=== PATIENT | male | born 1990 | race Caucasian/White ===

== ENCOUNTER 2020-01-27 16:06 | Emergency (ER) | payer MEDICAID ==
[~2020-01-27] VITALS: Ht 180.3 cm; Wt 99.0 kg
[2020-01-27 16:09] VITALS: BP 121/88
--- NOTE | 2020-01-27 16:24 | NUR ---
Pt here for bed bug rash, reports staying at [facility]. Pt has no sob,cp or is not in any distress. Pt has bite karen throughout torso.
[2020-01-27] MEDS ORDERED: hydrOXyzine 50MG TABLET ONE (16:28)
[2020-01-27] MEDS ORDERED: PERMETHRIN CRM 5%, 60GM TP ONE (16:30)
[2020-01-27] MEDS ORDERED: PLEASE ENTER ALLERGIES MC SCH (16:30)
--- NOTE | 2020-01-27 16:40 | NUR ---
Patient/Caregiver given discharge instructions and they have confirmed that they understand the instructions. Patient ambulatory with steady gait.
--- NOTE | 2020-01-27 16:40 | NUR ---
pt provided with meal and hydration.
== END 2020-01-27 16:42 | disposition home or self-care (01) ==
LOC: ED 16:07
DX: T14.8XXA Other injury of unspecified body region, initial encounter (principal); W57.XXXA Bitten or stung by nonvenomous insect and other nonvenomous arthropods, initial encounter; Y93.89 Activity, other specified; Y92.89 Other specified places as the place of occurrence of the external cause; Y99.8 Other external cause status
CPT/HCPCS: 99283; Q0177

== ENCOUNTER 2020-02-02 20:11 | Emergency (ER) | payer MEDICAID ==
[~2020-02-02] VITALS: Ht 180.3 cm; Wt 102.3 kg
[2020-02-02] MEDS ORDERED: SODIUM CHLORIDE 0.9% 1,000ML IVBOLUS ONE (20:30)
[2020-02-02 21:02] LABS: BASOPHILS % (AUTO) 0 % (0-1); EOSINOPHILS # (AUTO) 0.01 x10^3/uL (0-0.4); EOSINOPHILS % (AUTO) 0 % (1-7); LYMPHOCYTES # (AUTO) 0.77 x10^3/uL (1-3.4); LYMPHOCYTES % (AUTO) 6 % (22-44); MD NO; MEAN CORPUSCULAR HEMOGLOBIN 30.5 pg (27.5-34.5); MEAN CORPUSCULAR VOLUME 89.7 fL (81-97); MEAN PLATELET VOLUME 8.4 fL (7.4-10.4); MONOCYTES # (AUTO) 0.55 x10^3/uL (0.2-0.8); MONOCYTES % (AUTO) 5 % (2-9); NEUTROPHILS # (AUTO) 10.66 x10^3/uL (1.8-6.8); NEUTROPHILS % (AUTO) 89 % (42-75); PLATELET COUNT 167 x10^3/uL (130-400); RED BLOOD COUNT 5.63 x10^6/uL (4.38-5.82); RED CELL DISTRIBUTION WIDTH 14.2 % (9.4-14.8)
[2020-02-02 21:10] LABS: ALANINE AMINOTRANSFERASE 28 U/L (12-78); ALBUMIN 3.6 g/dL (3.4-5.0); ANION GAP 6 mmol/L (5-15); CALCIUM 8.3 mg/dL (8.5-10.1); CHLORIDE 104 mmol/L (98-107)
[2020-02-02 21:13] LABS: ALKALINE PHOSPHATASE 82 U/L (45-117); BILIRUBIN,TOTAL 0.7 mg/dL (0.2-1.0); CREATININE 1.35 mg/dL (0.7-1.3); TOTAL PROTEIN 7.1 g/dL (6.4-8.2)
--- NOTE | 2020-02-02 22:31 | NUR ---
PT SLEEPING, RA O2 SAT 88%. PT PLACED ON NC 2L O2 -->O2 SAT 95%.
[2020-02-02] MEDS ORDERED: OMNIPAQUE 350 MG/ML, 100ML BOTTLE ONE (23:43)
[2020-02-03 01:14] VITALS: BP 126/60
--- NOTE | 2020-02-03 01:16 | NUR ---
PT AMBULATED IN HALLWAY WITH GUARDED GAIT, MOVING SLOWLY BUT STABLE. RA O2 SAT 96% AFTER ROAD TEST.
== END 2020-02-03 02:28 | disposition home or self-care (01) ==
LOC: ED 20:48
DX: R50.9 Fever, unspecified (principal); Z20.828 Contact with and (suspected) exposure to other viral communicable diseases; R05 Cough; M79.10 Myalgia, unspecified site; R00.0 Tachycardia, unspecified; R06.02 Shortness of breath
CPT/HCPCS: 36415; 71045; 71275; 80053; 80307; 83605; 84145; 85025; 85379; 87040; 87635; 99285; J7030; Q9967; 96360

== ENCOUNTER 2020-04-08 14:41 | Emergency (ER) | payer MEDICAID ==
[~2020-04-08] VITALS: Ht 180.3 cm; Wt 99.0 kg
[2020-04-08 14:44] VITALS: BP 146/82
[2020-04-08 15:30] LABS: BASOPHILS % (AUTO) 0 % (0-1); EOSINOPHILS % (AUTO) 2 % (1-7); LYMPHOCYTES % (AUTO) 22 % (22-44); MEAN CORPUSCULAR HGB CONC 33.8 g/dL (33.2-36.2); MEAN PLATELET VOLUME 7.7 fL (7.4-10.4); MONOCYTES % (AUTO) 6 % (2-9); NEUTROPHILS % (AUTO) 69 % (42-75); PLATELET COUNT 276 x10^3/uL (130-400); RED BLOOD COUNT 5.48 x10^6/uL (4.38-5.82); RED CELL DISTRIBUTION WIDTH 14.3 % (9.4-14.8)
[2020-04-08 15:31] LABS: MD NO
[2020-04-08 15:41] LABS: ALBUMIN 3.5 g/dL (3.4-5.0); ANION GAP 2 mmol/L (5-15); CALCIUM 8.3 mg/dL (8.5-10.1); CHLORIDE 111 mmol/L (98-107)
[2020-04-08 15:44] LABS: ALANINE AMINOTRANSFERASE 17 U/L (12-78); ALKALINE PHOSPHATASE 77 U/L (45-117); BILIRUBIN,TOTAL 0.3 mg/dL (0.2-1.0); CREATININE 0.89 mg/dL (0.7-1.3); TOTAL PROTEIN 6.7 g/dL (6.4-8.2)
--- NOTE | 2020-04-08 16:06 | NUR ---
PT HAD TO LEAVE D/T TRANSPORTATION ISSUES. SAMPLE CUP SENT WITH PT AND INSTRUCTIONS. PT VERBALIZES UNDERSTANDING.
[2020-04-10 19:45] LABS: CRYPTOSPORIDIUM ANTIGEN Negative (Negative)
== END 2020-04-08 16:08 | disposition home or self-care (01) ==
LOC: ED 15:44
DX: R19.7 Diarrhea, unspecified (principal); J45.909 Unspecified asthma, uncomplicated; F17.200 Nicotine dependence, unspecified, uncomplicated
CPT/HCPCS: 36415; 80053; 85025; 87046; 87252; 87328; 87329; 99283

== ENCOUNTER 2020-05-30 17:42 | Emergency (ER) | payer MEDICAID ==
[~2020-05-30] VITALS: Ht 180.3 cm; Wt 104.5 kg
--- NOTE | 2020-05-30 17:55 | NUR ---
DIRECT SUPPORT SPECIALIST: PT AGITATED IN TRIAGE WHEN ASKED TO REMOVE SHIRT FOR EKG.
--- NOTE | 2020-05-30 17:56 | NUR ---
INJECTION MACHINE OPERATOR: PT AMBULATORY W/ A STEADY GAIT TO ROOM AT THIS TIME.
[2020-05-30] MEDS ORDERED: ALBUTEROL/IPRATROPIUM 2.5MG/0.5MG, 3 ML ONE (18:11)
--- NOTE | 2020-05-30 18:22 | NUR ---
PT ARGUING ABOUT HOW MANY XRAYS SHOULD HAVE BEEN TAKEN. STATING "IT'S ALWAYS MORE THAN ONE". WOULD NOT STOP TALKING WHEN THIS RN ATTEMPTED TO EXPLAIN THE ORDER PLACED BY PROVIDER. PT COMPLIANT WITH MEDS.
[2020-05-30] MEDS ORDERED: ALBUTEROL/IPRATROPIUM 2.5MG/0.5MG, 3 ML NPPB ONE (18:30)
[2020-05-30 19:10] VITALS: BP 123/68
== END 2020-05-30 19:12 | disposition home or self-care (01) ==
LOC: ED 18:07
DX: J45.41 Moderate persistent asthma with (acute) exacerbation (principal); I45.10 Unspecified right bundle-branch block; I44.5 Left posterior fascicular block; I25.2 Old myocardial infarction; R07.89 Other chest pain; F17.290 Nicotine dependence, other tobacco product, uncomplicated
CPT/HCPCS: 71045; 93005; 94640; 99283; J7512

== ENCOUNTER 2020-06-20 15:17 | Emergency (ER) | payer MEDICAID ==
[~2020-06-20] VITALS: Ht 180.3 cm; Wt 103.8 kg
--- NOTE | 2020-06-20 15:40 | NUR ---
FOUNDATION DRILL OPERATOR: PT TO ROOM FROM LOBBY
[2020-06-20 16:16] VITALS: BP 136/80
--- NOTE | 2020-06-20 16:16 | NUR ---
Patient given discharge instructions and they have confirmed that they understand the instructions. Patient ambulatory with steady gait.
== END 2020-06-20 16:18 | disposition home or self-care (01) ==
LOC: ED 15:30
DX: R19.7 Diarrhea, unspecified (principal); J45.909 Unspecified asthma, uncomplicated; F17.200 Nicotine dependence, unspecified, uncomplicated
CPT/HCPCS: 99281

== ENCOUNTER 2020-06-30 22:42 | Emergency (ER) | payer MEDICAID ==
[~2020-06-30] VITALS: Ht 180.3 cm; Wt 103.2 kg
[2020-06-30 22:46] VITALS: BP 126/77
[2020-06-30] MEDS ORDERED: METHOCARBAMOL 750 MG TABLET PO ONE (23:30)
[2020-06-30] MEDS ORDERED: ACETAMINOPHEN 500 MG TABLET PO ONE (23:30)
[2020-06-30] MEDS ORDERED: ACETAMINOPHEN 500 MG TABLET ONE (23:36)
[2020-06-30] MEDS ORDERED: METHOCARBAMOL 750 MG TABLET ONE ×2 (23:36→23:51)
== END 2020-07-01 00:47 | disposition home or self-care (01) ==
LOC: ED 23:12
DX: S09.90XA Unspecified injury of head, initial encounter (principal); Z72.9 Problem related to lifestyle, unspecified; F17.210 Nicotine dependence, cigarettes, uncomplicated; J45.909 Unspecified asthma, uncomplicated; W22.8XXA Striking against or struck by other objects, initial encounter; Y93.89 Activity, other specified; Y92.410 Unspecified street and highway as the place of occurrence of the external cause; Y99.0 Civilian activity done for income or pay
CPT/HCPCS: 70450; 99284

== ENCOUNTER 2020-07-18 20:48 | Emergency (ER) | payer MEDICAID ==
--- NOTE | 2020-07-18 21:19 | NUR ---
CC OF MIGRAINE HEADACHES FOR ONE WEEK.PT CONCERED IF IT COULD BE FROM HEAD INJURY PREVIOUSLY. PT HAS MULTIPLE COMPLAINTS INCLUDING NAUSEA/VOMITING AND BODY ACHES AND CHILLS. PT WILL HAVE REASON FOR EACH COMPLAINT SUCH " THE LIGHTING IN MY APARTMENT IS DIM AND COULD BE CAUSING MY PERDOMO, I DRINK ONE TALL BOY OF MONSTER [employer]ER[employer] DRINK A DAY WHICH COULD BE CAUSING IT TOO, I HAVENT BEEN DRINKING MUCH WATER LATELY." PT RESTING IN [facility].
[2020-07-18] MEDS ORDERED: DIPHENHYDRAMINE 25 MG CAPSULE PO ONE (22:00)
[2020-07-18] MEDS ORDERED: PROMETHAZINE 25 MG/ML, 1ML IM ONE (22:00)
[2020-07-18] MEDS ORDERED: IBUPROFEN 600 MG TABLET PO ONE (22:00)
[2020-07-18 22:20] LABS: BASOPHILS % (AUTO) 0 % (0-1); EOSINOPHILS % (AUTO) 2 % (1-7); LYMPHOCYTES % (AUTO) 29 % (22-44); MEAN CORPUSCULAR HEMOGLOBIN 31.2 pg (27.5-34.5); MEAN CORPUSCULAR HGB CONC 35.6 g/dL (33.2-36.2); MEAN PLATELET VOLUME 7.9 fL (7.4-10.4); MONOCYTES % (AUTO) 9 % (2-9); NEUTROPHILS % (AUTO) 60 % (42-75); PLATELET COUNT 242 x10^3/uL (130-400); RED BLOOD COUNT 5.43 x10^6/uL (4.38-5.82); RED CELL DISTRIBUTION WIDTH 13.5 % (9.4-14.8)
[2020-07-18] MEDS ORDERED: DIPHENHYDRAMINE 25 MG CAPSULE ONE (22:26)
[2020-07-18] MEDS ORDERED: IBUPROFEN 600 MG TABLET ONE (22:26)
[2020-07-18] MEDS ORDERED: PROMETHAZINE 25 MG/ML, 1ML ONE (22:26)
[2020-07-18 22:27] LABS: ALANINE AMINOTRANSFERASE 23 U/L (12-78); ALBUMIN 3.5 g/dL (3.4-5.0); ANION GAP 6 mmol/L (5-15); CALCIUM 8.3 mg/dL (8.5-10.1); CHLORIDE 112 mmol/L (98-107); CREATININE 0.88 mg/dL (0.7-1.3)
[2020-07-18 22:30] LABS: ALKALINE PHOSPHATASE 78 U/L (45-117); BILIRUBIN,TOTAL 0.3 mg/dL (0.2-1.0); TOTAL PROTEIN 6.6 g/dL (6.4-8.2)
[2020-07-18 22:34] LABS: MD NO
[2020-07-18 23:38] VITALS: BP 124/72
== END 2020-07-18 23:40 | disposition home or self-care (01) ==
LOC: ED 22:36
DX: R51.9 Headache, unspecified (principal); R11.2 Nausea with vomiting, unspecified; R19.7 Diarrhea, unspecified; J45.909 Unspecified asthma, uncomplicated
CPT/HCPCS: 36415; 80053; 85025; 96372; 99283; J2550; Q0163

== ENCOUNTER 2020-07-31 19:54 | Emergency (ER) | payer MEDICAID ==
[~2020-07-31] VITALS: Ht 180.3 cm; Wt 103.8 kg
[2020-07-31 22:00] LABS: MEAN CORPUSCULAR HEMOGLOBIN 30.8 pg (27.5-34.5); MEAN CORPUSCULAR HGB CONC 34.9 g/dL (33.2-36.2); PLATELET COUNT 232 x10^3/uL (130-400); RED BLOOD COUNT 6.58 x10^6/uL (4.38-5.82); RED CELL DISTRIBUTION WIDTH 13.6 % (9.4-14.8)
[2020-07-31 22:09] LABS: ALBUMIN 3.5 g/dL (3.4-5.0); ANION GAP 8 mmol/L (5-15); CALCIUM 8.3 mg/dL (8.5-10.1); CHLORIDE 111 mmol/L (98-107)
[2020-07-31 22:12] LABS: ALANINE AMINOTRANSFERASE 30 U/L (12-78); ALKALINE PHOSPHATASE 86 U/L (45-117); BILIRUBIN,TOTAL 0.3 mg/dL (0.2-1.0); CREATININE 0.97 mg/dL (0.7-1.3); TOTAL PROTEIN 6.7 g/dL (6.4-8.2)
[2020-07-31 22:48] LABS: MD YES
[2020-07-31 22:52] LABS: BAND#(MANUAL) 0.15 x10^3/uL; BANDS%(MANUAL) 1 % (0-7); BASOS#(MANUAL) 0.15 x10^3/uL (0-0.1); BASOS% (MANUAL) 1 % (0-1); EOS#(MANUAL) 0.15 x10^3/uL (0.0-0.4); EOS% (MANUAL) 1 % (1-7); LYMPH#(MANUAL) 2.47 x10^3/uL (1-3.4); LYMPHS% (MANUAL) 17 % (22-44); MONOS#(MANUAL) 1.16 x10^3/uL (0.3-2.7); MONOS% (MANUAL) 8 % (2-9); REACTIVE LYMPHS # (MANUAL) 0.58 x10^3/uL (0-0); REACTIVE LYMPHS % (MANUAL) 4 % (0-0); SEG#(MANUAL) 9.86 x10^3/uL (1.8-6.8); SEGS% (MANUAL) 68 % (42-75)
[2020-07-31 22:53] LABS: <PLATELET ESTIMATE> ADEQUATE; <PLT MORPHOLOGY> NORMAL PLT MORPH; <RBC MORPHOLOGY> NORMAL
[2020-07-31 23:35] VITALS: BP 146/80
== END 2020-07-31 23:37 | disposition home or self-care (01) ==
LOC: ED 20:24
DX: K52.29 Other allergic and dietetic gastroenteritis and colitis (principal); R19.7 Diarrhea, unspecified; R10.10 Upper abdominal pain, unspecified; J45.909 Unspecified asthma, uncomplicated; F17.200 Nicotine dependence, unspecified, uncomplicated
CPT/HCPCS: 36415; 80053; 83690; 85025; 99281; 99283

== ENCOUNTER 2020-08-21 00:48 | Emergency (ER) | payer MEDICAID ==
[~2020-08-21] VITALS: Ht 180.3 cm; Wt 102.0 kg
--- NOTE | 2020-08-21 01:42 | NUR ---
Pt to ER with c/o body aches, cough, sob, fever and chills x 2 days. Pt A&O x 4, non-labored breathing, pink and warm. Pt attached to monitor, stable VS. Warm blanket given. Will monitor.
[2020-08-21] MEDS ORDERED: ALBUTEROL/IPRATROPIUM 2.5MG/0.5MG, 3 ML NPPB ONE (02:00)
[2020-08-21] MEDS ORDERED: ONDANSETRON 2MG/ML, 2ML IVPush ONE (02:00)
[2020-08-21] MEDS ORDERED: SODIUM CHLORIDE 0.9% 1,000ML IVBOLUS ONE (02:00)
[2020-08-21] MEDS ORDERED: KETOROLAC 30 MG/1 ML IM ONE (02:00)
[2020-08-21] MEDS ORDERED: SODIUM CHLORIDE FLUSH 10ML SYR IVF ONE (02:00)
[2020-08-21] MEDS ORDERED: DEXAMETHASONE 4 MG TABLET PO ONE (02:00)
[2020-08-21 02:15] LABS: BASOPHILS % (AUTO) 0 % (0-1); EOSINOPHILS % (AUTO) 1 % (1-7); LYMPHOCYTES % (AUTO) 11 % (22-44); MEAN CORPUSCULAR HEMOGLOBIN 30.8 pg (27.5-34.5); MEAN CORPUSCULAR HGB CONC 34.9 g/dL (33.2-36.2); MEAN PLATELET VOLUME 7.9 fL (7.4-10.4); MONOCYTES % (AUTO) 9 % (2-9); NEUTROPHILS % (AUTO) 79 % (42-75); PLATELET COUNT 229 x10^3/uL (130-400); RED BLOOD COUNT 5.85 x10^6/uL (4.38-5.82); RED CELL DISTRIBUTION WIDTH 13.8 % (9.4-14.8)
[2020-08-21 02:16] LABS: ALANINE AMINOTRANSFERASE 28 U/L (12-78); ALBUMIN 3.4 g/dL (3.4-5.0); ANION GAP 6 mmol/L (5-15); CALCIUM 8.4 mg/dL (8.5-10.1); CHLORIDE 105 mmol/L (98-107); CREATININE 1.06 mg/dL (0.7-1.3)
[2020-08-21 02:20] LABS: ALKALINE PHOSPHATASE 79 U/L (45-117); BILIRUBIN,TOTAL 0.4 mg/dL (0.2-1.0); TOTAL PROTEIN 6.8 g/dL (6.4-8.2); TROPONIN I < 0.015 ng/mL (0.000-0.045)
[2020-08-21 02:21] LABS: MD NO
[2020-08-21] MEDS ORDERED: DEXAMETHASONE 4 MG TABLET ONE (02:27)
[2020-08-21] MEDS ORDERED: KETOROLAC 30 MG/1 ML ONE (02:27)
[2020-08-21] MEDS ORDERED: ONDANSETRON 2MG/ML, 2ML ONE (02:27)
[2020-08-21] MEDS ORDERED: ALBUTEROL/IPRATROPIUM 2.5MG/0.5MG, 3 ML ONE (02:28)
[2020-08-21 03:55] VITALS: BP 135/64
--- NOTE | 2020-08-21 03:58 | NUR ---
Patient given discharge instructions and they have confirmed that they understand the instructions. Patient ambulatory with steady gait. Rx reviewed with patient. Pt home with a ride.
== END 2020-08-21 04:00 | disposition home or self-care (01) ==
LOC: ED 03:19
DX: B34.9 Viral infection, unspecified (principal); Z20.822 Contact with and (suspected) exposure to COVID-19; J45.909 Unspecified asthma, uncomplicated
CPT/HCPCS: 36415; 71045; 80053; 84484; 85025; 93005; 94640; 96361; 96372; 96374; 99285; J1885; J2405; J7030; U0003

== ENCOUNTER 2020-08-29 23:39 | Emergency (ER) | payer MEDICAID ==
[~2020-08-29] VITALS: Ht 180.3 cm; Wt 105.6 kg
--- NOTE | 2020-08-30 00:27 | NUR ---
IV started, bloods drawn and sent. Requested urine from pt, unable at this time.
[2020-08-30] MEDS ORDERED: SODIUM CHLORIDE FLUSH 10ML SYR IVF ONE (00:30)
[2020-08-30] MEDS ORDERED: OMNIPAQUE 350 MG/ML, 100ML BOTTLE ONE (00:30)
[2020-08-30 00:34] LABS: BASOPHILS % (AUTO) 1 % (0-1); EOSINOPHILS % (AUTO) 2 % (1-7); LYMPHOCYTES % (AUTO) 20 % (22-44); MEAN CORPUSCULAR HEMOGLOBIN 31.4 pg (27.5-34.5); MEAN CORPUSCULAR HGB CONC 35.4 g/dL (33.2-36.2); MEAN PLATELET VOLUME 7.5 fL (7.4-10.4); MONOCYTES % (AUTO) 9 % (2-9); NEUTROPHILS % (AUTO) 68 % (42-75); PLATELET COUNT 266 x10^3/uL (130-400); RED BLOOD COUNT 5.67 x10^6/uL (4.38-5.82); RED CELL DISTRIBUTION WIDTH 13.8 % (9.4-14.8)
--- NOTE | 2020-08-30 00:40 | NUR ---
Wtg for CT, pt watching tv and on phone. Does not appear to be in any distress. Call jones in reach, pt is fully ambulatory.
[2020-08-30 00:46] LABS: ALANINE AMINOTRANSFERASE 28 U/L (12-78); ALBUMIN 3.1 g/dL (3.4-5.0); ANION GAP 5 mmol/L (5-15); CALCIUM 8.2 mg/dL (8.5-10.1); CHLORIDE 108 mmol/L (98-107); CREATININE 1.06 mg/dL (0.7-1.3)
[2020-08-30 00:48] LABS: ALKALINE PHOSPHATASE 77 U/L (45-117); BILIRUBIN,TOTAL 0.1 mg/dL (0.2-1.0); TOTAL PROTEIN 6.2 g/dL (6.4-8.2)
[2020-08-30 01:06] LABS: MD SCAN
--- NOTE | 2020-08-30 01:21 | NUR ---
BREAK RN: PT TAKEN TO AND BACK FROM CT SCAN.
--- NOTE | 2020-08-30 02:31 | NUR ---
Still waiting for stat rad CT, requested inquiry to Tonia, Crm Marketing Analyst.
[2020-08-30 03:19] VITALS: BP 135/71
--- NOTE | 2020-08-30 03:19 | NUR ---
CT results back, pt to be discharged. IV dc cath intact. VSS.
== END 2020-08-30 03:30 | disposition home or self-care (01) ==
LOC: ED 08-30 00:09
DX: K52.9 Noninfective gastroenteritis and colitis, unspecified (principal); R10.32 Left lower quadrant pain; J45.909 Unspecified asthma, uncomplicated; F17.210 Nicotine dependence, cigarettes, uncomplicated
CPT/HCPCS: 36415; 74177; 80053; 85025; 99285; 99406; Q9967

== ENCOUNTER 2020-09-25 12:58 | Emergency (ER) | payer MEDICAID ==
[~2020-09-25] VITALS: Ht 180.3 cm; Wt 105.1 kg
--- NOTE | 2020-09-25 13:48 | NUR ---
PANTRY ATTENDANT: PT AMBULATORY TO ROOM FROM LOBBY
--- NOTE | 2020-09-25 14:25 | NUR ---
PT REPORTS HE HAS HAD SOME N/V X4 DAYS. PT ALSO C/O CENTER ABD PAIN. VS STABLE. NO ACUTE DISTRESS NOTED. CALL LIGHT IN PLACE. WILL CONTINUE TO MONITOR.
[2020-09-25 14:30] LABS: BASOPHILS % (AUTO) 0 % (0-1); EOSINOPHILS % (AUTO) 1 % (1-7); LYMPHOCYTES % (AUTO) 24 % (22-44); MEAN CORPUSCULAR HEMOGLOBIN 30.9 pg (27.5-34.5); MEAN CORPUSCULAR HGB CONC 34.6 g/dL (33.2-36.2); MEAN PLATELET VOLUME 7.8 fL (7.4-10.4); MONOCYTES % (AUTO) 9 % (2-9); NEUTROPHILS % (AUTO) 65 % (42-75); PLATELET COUNT 246 x10^3/uL (130-400); RED BLOOD COUNT 5.15 x10^6/uL (4.38-5.82)
[2020-09-25 14:35] LABS: MD NO
[2020-09-25 14:41] LABS: ALBUMIN 3.7 g/dL (3.4-5.0); ANION GAP 6 mmol/L (5-15); CALCIUM 8.8 mg/dL (8.5-10.1); CHLORIDE 104 mmol/L (98-107)
--- NOTE | 2020-09-25 14:41 | NUR ---
PT WATCHING TV IN ROOM. VS STABLE. NO ACUTE DISTRESS NOTED. CALL LIGHT IN PLACE. WILL CONTINUE TO MONITOR.
[2020-09-25 14:45] LABS: ALANINE AMINOTRANSFERASE 23 U/L (12-78); ALKALINE PHOSPHATASE 71 U/L (45-117); BILIRUBIN,TOTAL 0.2 mg/dL (0.2-1.0); CREATININE 0.82 mg/dL (0.7-1.3); TOTAL PROTEIN 6.7 g/dL (6.4-8.2)
--- NOTE | 2020-09-25 15:15 | NUR ---
PT AMBULATED TO BATHROOM. VS STABLE. NO ACUTE DISTRESS NOTED. CALL LIGHT IN PLACE. WILL CONTINUE TO MONITOR.
--- NOTE | 2020-09-25 15:34 | NUR ---
DR FARIAS IN ROOM
[2020-09-25] MEDS ORDERED: ONDANSETRON 2MG/ML, 2ML ONE (15:47)
[2020-09-25] MEDS ORDERED: SODIUM CHLORIDE 0.9% 1,000ML IVBOLUS ONE (16:00)
[2020-09-25] MEDS ORDERED: SODIUM CHLORIDE FLUSH 10ML SYR IVF ONE (16:00)
[2020-09-25] MEDS ORDERED: ONDANSETRON 2MG/ML, 2ML IVPush ONE (16:00)
--- NOTE | 2020-09-25 16:03 | NUR ---
PT WATCHING TV. VS STABLE. CALL LIGHT IN PLACE. WILL CONTINUE TO MONITOR.
--- NOTE | 2020-09-25 16:29 | NUR ---
PT RESTING IN ROOM. VS STABLE. NO ACUTE DISTRESS NOTED. CALL LIGHT IN PLACE. WILL CONTINUE TO MONITOR.
[2020-09-25 16:45] VITALS: BP 125/59
== END 2020-09-25 16:48 | disposition home or self-care (01) ==
LOC: ED 16:42
DX: K52.9 Noninfective gastroenteritis and colitis, unspecified (principal); R11.2 Nausea with vomiting, unspecified; J45.909 Unspecified asthma, uncomplicated; F17.200 Nicotine dependence, unspecified, uncomplicated
CPT/HCPCS: 36415; 80053; 83690; 85025; 96361; 96374; 99285; J2405; J7030

== ENCOUNTER 2020-10-16 10:48 | Emergency (ER) | payer MEDICAID, OTHER ==
[~2020-10-16] VITALS: Ht 180.3 cm; Wt 101.4 kg
--- NOTE | 2020-10-16 11:02 | NUR ---
PT AMBULATORY TO ROOM FROM TRIAGE WITH UPRIGHT, STEADY GAIT. PT CHANGED INTO GOWN, MONITORS IN PLACE. CALL LIGHT WITHIN REACH
--- NOTE | 2020-10-16 11:13 | NUR ---
PA AT BS
[2020-10-16] MEDS ORDERED: IBUPROFEN 600 MG TABLET PO ONE (11:30)
--- NOTE | 2020-10-16 11:35 | NUR ---
PT TO RADIOLOGY
[2020-10-16] MEDS ORDERED: IBUPROFEN 600 MG TABLET ONE (11:36)
--- NOTE | 2020-10-16 11:47 | NUR ---
PT BACK FROM RADIOLOGY, MONITORS IN PLACE. CALL LIGHT WITHIN REACH
--- NOTE | 2020-10-16 12:08 | NUR ---
PA AT BS
--- NOTE | 2020-10-16 12:24 | NUR ---
PT TO CT
[2020-10-16 12:50] VITALS: BP 124/72
--- NOTE | 2020-10-16 12:50 | NUR ---
BREAK RN: PT STATES PERDOMO IS TOLLERABLE AFTER PAIN MEDS.
--- NOTE | 2020-10-16 12:51 | NUR ---
BREAK RN: ALL RESULTS ARE BACK AT THIS TIME. CHART UP FOR RECHECK.
--- NOTE | 2020-10-16 13:22 | NUR ---
Patient given discharge instructions and they have confirmed that they understand the instructions. Patient ambulatory with steady gait.
== END 2020-10-16 13:24 | disposition home or self-care (01) ==
LOC: ED 11:20
DX: S80.02XA Contusion of left knee, initial encounter (principal); S00.83XA Contusion of other part of head, initial encounter; R41.3 Other amnesia; J45.909 Unspecified asthma, uncomplicated; E66.9 Obesity, unspecified; W12.XXXA Fall on and from scaffolding, initial encounter; Y93.89 Activity, other specified; Y92.69 Other specified industrial and construction area as the place of occurrence of the external cause; Y99.8 Other external cause status
CPT/HCPCS: 70450; 99284

== ENCOUNTER 2021-01-16 07:27 | Emergency (ER) | payer MEDICAID, OTHER ==
[~2021-01-16] VITALS: Ht 180.3 cm; Wt 98.0 kg
--- NOTE | 2021-01-16 07:58 | NUR ---
CARGO TANK MECHANIC: PT TO ROOM FROM LOBBY VIA W/C
[2021-01-16] MEDS ORDERED: ACETAMINOPHEN 500 MG TABLET PO ONE (08:00)
[2021-01-16] MEDS ORDERED: KETOROLAC 30 MG/1 ML IM ONE (08:00)
--- NOTE | 2021-01-16 08:02 | NUR ---
FIRST CONTACT: body aches PERDOMO and cough x3 days. pt states that he has not had a COVID vaccine. PT TO ROOM WITH STEADY GAIT. ATTACHED TO MONITORS. VSS. LAWSON.
[2021-01-16] MEDS ORDERED: KETOROLAC 30 MG/1 ML ONE (08:04)
[2021-01-16] MEDS ORDERED: ACETAMINOPHEN 500 MG TABLET ONE (08:04)
--- NOTE | 2021-01-16 08:15 | NUR ---
PT AGIATED WHEN THIS RN IN ROOM ATTEMPTING TO ASK MEDCIAL HISTORY AND INTRUPPTING THIS RN STATING "NO ONE FUCKING CARE OR THIHKS SOMETHING IS WRONG WITH ME. I WANT A HEAD SCAN!" PT THEN PROCEDED TO THROW GLASSES ACROSS ROOM. THIS RN STATED SHE WILL CALL SECUIRTY IF CONTINUES TO ACT AGRESSIVELY AND AGIATED. PT STATED "I'M SORRY, I JUST DON'T FEEL GOOD, IM NORMALLY NOT RUDE LIKE THIS". PT MEDICATED PER EMAR AND PROVIDED WITH WARM BLANKET. VSS
[2021-01-16 09:17] VITALS: BP 126/71
--- NOTE | 2021-01-16 09:17 | NUR ---
DR. FLORENCE TO BEDSIDE FOR EVALUATION. VSS. LAWSON.
--- NOTE | 2021-01-16 09:22 | NUR ---
WHILE DR. FLORENCE DISCUSSING POC PT BEGAN DEMANDING HEAD CT YELLING "I'M NOT LEAVING UNTIL YOU CAN MY HEAD, YOHANNES HAD A MIGRANE FOR 5 DAYS NOW AND I WANT TO KNOW WHY MY BODY ACHES!" DR. FLORENCE ATTEMPTING TO EDUCATE PT ON POC AND HOW HE DIDN'T MEET CRITERIA FOR HEAD CT. PT BECAME MORE AGIATED. STATING "YOU PEOPLE AREN'T DOING YOUR JOBS" PT TO BE D/C WITH SECURITY ONCE PAPERWORK IS COMPLETE. VSS. Addendum: 01/16/21 at [address] FLORENCE DISCUSSING POC PT BEGAN DEMANDING HEAD CT YELLING "I'M NOT LEAVING UNTIL YOU SCAN MY HEAD, YOHANNES HAD A MIGRANE FOR 5 DAYS NOW AND I WANT TO KNOW WHY MY BODY ACHES!" DR. FLORENCE ATTEMPTING TO EDUCATE PT ON POC AND HOW HE DIDN'T MEET CRITERIA FOR HEAD CT. PT BECAME MORE AGIATED. STATING "YOU PEOPLE AREN'T DOING YOUR JOBS" PT TO BE D/C WITH SECURITY ONCE PAPERWORK IS COMPLETE. VSS.
--- NOTE | 2021-01-16 11:24 | NUR ---
LATE ENTRY: PT REFUSING TO LEAVE AFTER D/C STATING "IM NOT LEAVING UNTIL I GET A HEAD CT. I AM GOING TO [facility]" SECURITY CALLED AND PT ESCORTED OUT WITH D/C PAPER WORK.
== END 2021-01-16 10:15 | disposition home or self-care (01) ==
LOC: ED 10:09
DX: J06.9 Acute upper respiratory infection, unspecified (principal); Z20.822 Contact with and (suspected) exposure to COVID-19; M79.10 Myalgia, unspecified site; R51.9 Headache, unspecified; R05 Cough
CPT/HCPCS: 71045; 96372; 99284; J1885; U0003; U0005

== ENCOUNTER 2021-01-22 13:13 | Emergency (ER) | payer MEDICAID ==
[~2021-01-22] VITALS: Ht 180.3 cm; Wt 97.2 kg
[2021-01-22 13:17] VITALS: BP 136/79
== END 2021-01-22 15:13 | disposition home or self-care (01) ==
LOC: ED 14:30
DX: S09.90XA Unspecified injury of head, initial encounter (principal); R11.2 Nausea with vomiting, unspecified; J45.909 Unspecified asthma, uncomplicated; X58.XXXA Exposure to other specified factors, initial encounter; Y93.89 Activity, other specified; Y92.009 Unspecified place in unspecified non-institutional (private) residence as the place of occurrence of the external cause; Y99.8 Other external cause status
CPT/HCPCS: 70450; 72125; 99285